=== PATIENT | male | born 1970 | race African-American/Black ===

== ENCOUNTER 2018-02-24 18:03 | Emergency (ER) | payer MEDICAID ==
[~2018-02-24] VITALS: Ht 177.8 cm; Wt 143.0 kg
[~2018-02-24 18:03] MED LIST: BUPR-84 PO; DIPH1TAB PO; FERR-63 PO; FOLI0.8T PO; HYDR25TA PO; MESA800T PO; OMEP40CA PO; POTA10TA15 PO; QUET100T; SULF500
[2018-02-24] MEDS ORDERED: BACITRACIN ZINC OINT UDPKT TOP ONE (19:30)
[2018-02-24 19:56] LABS: BASOPHILS % 0.9 % (0.0-2.0); EOSINOPHILS % 1.1 % (0.0-5.0); HEMATOCRIT. 37.6 % (42.0-52.0); HEMOGLOBIN. 12.8 g/dL (14.0-18.0); LYMPHOCYTES % 17.9 % (20.0-50.0); MEAN CORPUSCULAR HEMOGLOBIN 33.7 pg (28.0-32.0); MEAN CORPUSCULAR VOLUME 99.2 fL (80.0-94.0); MEAN PLATELET VOLUME 8.2 fl (7.4-10.4); MONOCYTES % 8.2 % (2.0-8.0); NEUTROPHILS % 71.9 % (40.0-76.0); PLATELET 290 x1000/uL (130-400); RED BLOOD CELL COUNT 3.79 mill/uL (4.7-6.1); RED CELL DISTRIBUTION WIDTH 14.6 % (11.6-14.6)
[2018-02-24 20:01] LABS: CHLORIDE 107 mEq/L (98-107)
[2018-02-24 20:04] LABS: ETHANOL BLOOD < 10 mg/dL
[2018-02-24] MEDS ORDERED: LIDOCAINE HCL/PF 1% 10 MG/ML 5ML VIAL IJ ONE (20:45)
[2018-02-24 20:49] LABS: CLARITY URINE CLEAR (CLEAR); COLOR URINE YELLOW (YELLOW); KETONES URINE 1+ (NEGATIVE); LEUKOCYTE ESTERASE URINE NEGATIVE (NEGATIVE); NITRITE URINE NEGATIVE (NEGATIVE); OCCULT BLOOD URINE NEGATIVE (NEGATIVE); PROTEIN URINE TRACE (NEGATIVE); SPECIFIC GRAVITY URINE 1.015 (1.005-1.030); UROBILINOGEN URINE 0.2 E.U./dL (0.2-1.0)
[2018-02-24 20:57] LABS: *AMPHETAMINES SCREEN URINE PRESUMTIVE POSITIVE (NEGATIVE); *BARBITURATES SCREEN URINE NEGATIVE (NEGATIVE); *BENZODIAZEPINES SCREEN URINE NEGATIVE (NEGATIVE); *COCAINE SCREEN URINE PRESUMTIVE POSITIVE (NEGATIVE)
[2018-02-24 20:58] LABS: CANNABINOID URINE SCREEN PRESUMTIVE POSITIVE (NEGATIVE); METHADONE URINE SCREEN NEGATIVE (NEGATIVE); OPIATES URINE SCREEN NEGATIVE (NEGATIVE); PHENCYCLIDINE URINE SCREEN NEGATIVE (NEGATIVE)
[2018-02-24] MEDS ORDERED: DIPHENHYDRAMINE 50MG/ML VIAL IM STA (22:29)
[2018-02-24] MEDS ORDERED: LORAZEPAM 2MG/ML CPJ IM ONE (22:30)
[2018-02-25] MEDS ORDERED: LOPERAMIDE HCL 2MG CAPSULE PO ONE (02:30)
[2018-02-25] MEDS ORDERED: SULFASALAZINE 500MG TABLET PO SCH (09:00)
[2018-02-25] MEDS ORDERED: GABA300C MT (13:41)
[2018-02-25] MEDS ORDERED: PANT40SU PO (13:42)
[2018-02-25] MEDS ORDERED: ASPI-1159 PO (13:44)
[2018-02-25] MEDS ORDERED: MAGNESIUM/ALUMINUM HYDROXIDE/SIMETHICONE 30ML UDC PO STA (17:12)
[2018-02-25] MEDS ORDERED: VISCOUS LIDOCAINE 2% 15 ML UDC PO STA (17:12)
[2018-02-25] MEDS ORDERED: LORAZEPAM 1MG TABLET PO ONE ×2 (17:15→20:00)
[2018-02-25] MEDS ORDERED: DIPHENHYDRAMINE 25MG CAPSULE PO ONE (17:15)
[2018-02-25] MEDS ORDERED: QUETIAPINE FUMARATE 100MG TABLET PO ONE (20:00)
[2018-02-25] MEDS ORDERED: DIPHENOXYLATE/ATROPINE 2.5/0.025MG TABLET PO ONE (20:15)
[2018-02-25] MEDS ORDERED: ZIPRASIDONE MESYLATE 20MG/VIAL IM ONE (20:45)
[2018-02-25] MEDS ORDERED: DIPHENHYDRAMINE 50MG/ML VIAL IM ONE (20:45)
[2018-02-25] MEDS: SULFASALAZINE 500MG TABLET PO SCH (21:13)
[2018-02-26] MEDS: SULFASALAZINE 500MG TABLET PO SCH ×3 (09:30→17:26)
[2018-02-26] MEDS ORDERED: MESALAMINE 250MG CAPSULE EXTENDED RELEASE PO STA (10:48)
[2018-02-26] MEDS ORDERED: LORAZEPAM 2MG/ML CPJ IM PRN (11:00)
[2018-02-26] MEDS ORDERED: POTASSIUM CHLORIDE 10MEQ TABLET SR PO ONE (11:00)
[2018-02-26] MEDS ORDERED: LISINOPRIL 2.5MG TABLET PO ONE (11:00)
[2018-02-26] MEDS ORDERED: BUPROPION HCL 150MG SR TABLET PO ONE (11:00)
[2018-02-26] MEDS ORDERED: PANTOPRAZOLE 40MG DR TABLET PO ONE (11:00)
[2018-02-26] MEDS ORDERED: GABAPENTIN 300MG CAPSULE PO ONE (11:00)
[2018-02-26] MEDS: FOLIC ACID 0.4MG TABLET PO SCH ×2 (12:30→17:26)
[2018-02-26] MEDS ORDERED: MESALAMINE 400 MG CAPSULE.DR PO SCH (12:45)
[2018-02-27] MEDS: SULFASALAZINE 500MG TABLET PO SCH ×2 (09:00→13:00)
[2018-02-27] MEDS: FOLIC ACID 0.4MG TABLET PO SCH (11:43)
[2018-02-27] MEDS ORDERED: LORAZEPAM 2MG/ML CPJ IM ONE (20:30)
[2018-02-28 11:02] VITALS: BP 125/61
== END 2018-02-28 17:44 | disposition home or self-care (01) ==
LOC: ER 18:59
DX: R45.851 Suicidal ideations (principal); S71.112A Laceration without foreign body, left thigh, initial encounter; R44.1 Visual hallucinations; R44.0 Auditory hallucinations; T76.21XA Adult sexual abuse, suspected, initial encounter; X99.1XXA Assault by knife, initial encounter; Y93.89 Activity, other specified; Y92.89 Other specified places as the place of occurrence of the external cause; R19.7 Diarrhea, unspecified; I10 Essential (primary) hypertension; K50.90 Crohn's disease, unspecified, without complications; R45.1 Restlessness and agitation; F14.10 Cocaine abuse, uncomplicated; F15.10 Other stimulant abuse, uncomplicated; F16.10 Hallucinogen abuse, uncomplicated; F12.10 Cannabis abuse, uncomplicated; D64.9 Anemia, unspecified; F79 Unspecified intellectual disabilities; Z75.1 Person awaiting admission to adequate facility elsewhere; Z87.890 Personal history of sex reassignment; Z86.59 Personal history of other mental and behavioral disorders; Z88.8 Allergy status to other drugs, medicaments and biological substances
CPT/HCPCS: 12001; 36415; 80048; 80305; 80307; 80329; 81003; 85025; 96372; 99285; G0482; J1200; J2060; J3486; J3490; Z7610; Q0163

== ENCOUNTER 2018-04-12 05:33 | Emergency (ER) | payer MEDICAID, MEDICARE ==
[~2018-04-12] VITALS: Ht 182.9 cm; Wt 127.0 kg
[~2018-04-12 05:33] MED LIST changes: +ASPI-1159 PO; +GABA300C MT; +PANT40SU PO
[2018-04-12 07:30] LABS: BASOPHILS % 0.5 % (0.0-2.0); EOSINOPHILS % 0.3 % (0.0-5.0); HEMATOCRIT. 37.5 % (42.0-52.0); LYMPHOCYTES % 13.2 % (20.0-50.0); MEAN CORPUSCULAR VOLUME 98.4 fL (80.0-94.0); MEAN PLATELET VOLUME 8.9 fl (7.4-10.4); MONOCYTES % 7.5 % (2.0-8.0); NEUTROPHILS % 78.5 % (40.0-76.0); PLATELET 212 x1000/uL (130-400); RED BLOOD CELL COUNT 3.81 mill/uL (4.7-6.1); RED CELL DISTRIBUTION WIDTH 13.9 % (11.6-14.6)
[2018-04-12 07:32] LABS: CHLORIDE 108 mEq/L (98-107)
[2018-04-12 07:35] LABS: HCG SCREEN NEGATIVE
[2018-04-12 07:39] LABS: ETHANOL BLOOD < 10 mg/dL
[2018-04-12 08:12] LABS: CLARITY URINE CLOUDY (CLEAR); KETONES URINE TRACE (NEGATIVE); LEUKOCYTE ESTERASE URINE NEGATIVE (NEGATIVE); NITRITE URINE NEGATIVE (NEGATIVE); OCCULT BLOOD URINE NEGATIVE (NEGATIVE); PH URINE 5.5 (4.5-8.0); PROTEIN URINE 1+ (NEGATIVE); SPECIFIC GRAVITY URINE 1.013 (1.005-1.030); UROBILINOGEN URINE 0.2 E.U./dL (0.2-1.0)
[2018-04-12 08:13] LABS: COLOR URINE YELLOW (YELLOW)
[2018-04-12 08:33] LABS: *AMPHETAMINES SCREEN URINE PRESUMTIVE POSITIVE (NEGATIVE); *BARBITURATES SCREEN URINE NEGATIVE (NEGATIVE); *BENZODIAZEPINES SCREEN URINE NEGATIVE (NEGATIVE); *COCAINE SCREEN URINE PRESUMTIVE POSITIVE (NEGATIVE); CANNABINOID URINE SCREEN PRESUMTIVE POSITIVE (NEGATIVE); METHADONE URINE SCREEN NEGATIVE (NEGATIVE); OPIATES URINE SCREEN NEGATIVE (NEGATIVE); PHENCYCLIDINE URINE SCREEN NEGATIVE (NEGATIVE)
[2018-04-12] MEDS ORDERED: POTASSIUM CHLORIDE 20MEQ TABLET SR PO ONE (08:45)
[2018-04-12] MEDS ORDERED: QUETIAPINE FUMARATE 100MG TABLET PO STA (11:06)
[2018-04-12] MEDS ORDERED: QUETIAPINE FUMARATE 100MG TABLET PO SCH (17:15)
[2018-04-12] MEDS ORDERED: POTASSIUM CHLORIDE 10MEQ TABLET SR PO ONE ×2 (20:30)
[2018-04-13] MEDS ORDERED: HALOPERIDOL LACTATE 5MG/ML VIAL IM ONE (00:45)
[2018-04-13] MEDS ORDERED: LORAZEPAM 2MG/ML CPJ IM ONE (00:45)
[2018-04-13] MEDS ORDERED: ZIPRASIDONE MESYLATE 20MG/VIAL IM ONE (02:00)
[2018-04-13 09:45] VITALS: BP 115/70
== END 2018-04-13 12:27 | disposition home or self-care (01) ==
LOC: ER 05:33
DX: R45.851 Suicidal ideations (principal); R44.0 Auditory hallucinations; Z78.1 Physical restraint status; F14.10 Cocaine abuse, uncomplicated; F15.10 Other stimulant abuse, uncomplicated; F12.10 Cannabis abuse, uncomplicated; E87.6 Hypokalemia; D64.9 Anemia, unspecified; F31.9 Bipolar disorder, unspecified; F91.8 Other conduct disorders; F64.0 Transsexualism; F20.9 Schizophrenia, unspecified; F17.200 Nicotine dependence, unspecified, uncomplicated; I10 Essential (primary) hypertension; Z79.899 Other long term (current) drug therapy; Z88.8 Allergy status to other drugs, medicaments and biological substances; Z88.5 Allergy status to narcotic agent; Z79.82 Long term (current) use of aspirin
CPT/HCPCS: 36415; 80053; 80305; 81003; 84703; 85025; 96372; 99284; G0482; J1630; J2060; J3486

== ENCOUNTER 2018-09-26 20:00 | Inpatient (IN) | payer MEDICAID, MEDICARE ==
[~2018-09-26] VITALS: Ht 177.8 cm; Wt 137.2 kg
[2018-09-27 06:57] LABS: CLARITY URINE CLEAR (CLEAR); COLOR URINE YELLOW (YELLOW); KETONES URINE NEGATIVE (NEGATIVE); LEUKOCYTE ESTERASE URINE NEGATIVE (NEGATIVE); NITRITE URINE NEGATIVE (NEGATIVE); OCCULT BLOOD URINE NEGATIVE (NEGATIVE); PROTEIN URINE NEGATIVE (NEGATIVE); SPECIFIC GRAVITY URINE 1.013 (1.005-1.030); UROBILINOGEN URINE 0.2 E.U./dL (0.2-1.0)
[2018-09-27 07:08] LABS: BASOPHILS % 0.9 % (0.0-2.0); EOSINOPHILS % 4.1 % (0.0-5.0); HEMATOCRIT. 35.9 % (42.0-52.0); LYMPHOCYTES % 28.2 % (20.0-50.0); MEAN CORPUSCULAR HEMOGLOBIN 33.7 pg (28.0-32.0); MEAN PLATELET VOLUME 9.1 fl (7.4-10.4); MONOCYTES % 10.4 % (2.0-8.0); NEUTROPHILS % 56.4 % (40.0-76.0); PLATELET 264 x1000/uL (130-400); RED BLOOD CELL COUNT 3.56 mill/uL (4.7-6.1); RED CELL DISTRIBUTION WIDTH 13.3 % (11.6-14.6)
[2018-09-27 07:09] LABS: CHLORIDE 107 mEq/L (98-107)
[2018-09-27 07:13] LABS: ETHANOL BLOOD < 10 mg/dL
[2018-09-27 07:17] LABS: *AMPHETAMINES SCREEN URINE NEGATIVE (NEGATIVE); *BENZODIAZEPINES SCREEN URINE NEGATIVE (NEGATIVE)
[2018-09-27 07:18] LABS: *COCAINE SCREEN URINE PRESUMTIVE POSITIVE (NEGATIVE); CANNABINOID URINE SCREEN PRESUMTIVE POSITIVE (NEGATIVE); METHADONE URINE SCREEN NEGATIVE (NEGATIVE); OPIATES URINE SCREEN NEGATIVE (NEGATIVE); PHENCYCLIDINE URINE SCREEN NEGATIVE (NEGATIVE)
[2018-09-27 07:20] LABS: *BARBITURATES SCREEN URINE NEGATIVE (NEGATIVE)
[2018-09-27] MEDS ORDERED: ACETAMINOPHEN 325MG TABLET PO PRN ×2 (10:30→11:15)
[2018-09-27] MEDS ORDERED: ACETAMINOPHEN 650MG SUPP PR PRN (10:30)
[2018-09-27] MEDS ORDERED: HYDROCODONE/ACETAMINOPHEN 5/325MG TABLET PO PRN ×2 (10:30→15:00)
[2018-09-27] MEDS ORDERED: IPRATROPIUM/ALBUTEROL 0.5-3(2.5)MG/3ML NEB INH PRN ×2 (10:30→11:15)
[2018-09-27] MEDS ORDERED: DOCUSATE SODIUM 100MG CAPSULE PO PRN (10:30)
[2018-09-27] MEDS ORDERED: CLONIDINE 0.1MG TABLET PO PRN (10:30)
[2018-09-27] MEDS ORDERED: DIPHENHYDRAMINE 50MG/ML VIAL IV PRN (10:30)
[2018-09-27] MEDS ORDERED: GUAIFENESIN 200MG/10ML SUGAR FREE UDC PO PRN (10:30)
[2018-09-27] MEDS ORDERED: ONDANSETRON HCL 4MG/2ML INJ IV PRN ×2 (10:30→11:15)
[2018-09-27] MEDS ORDERED: LORAZEPAM 0.5MG TABLET PO PRN (10:30)
[2018-09-27] MEDS: MVI, ADULT NO.1 10 ML, FOLIC ACID 1 MG, THIAMINE HCL 100 MG in SODIUM CHLORIDE 0.9% 1,0... IV SCH ×8 (11:15→16:29)
[2018-09-27] MEDS ORDERED: ENOXAPARIN 40MG/0.4ML SYR SUBCUT SCH (14:00)
[2018-09-27] MEDS ORDERED: HYDROMORPHONE HCL/PF 2MG/ML CPJ IV NR (16:30)
[2018-09-27 17:00] VITALS: BP 128/65
[2018-09-27 17:15] VITALS: BP 128/65
[2018-09-27] MEDS: DIPHENHYDRAMINE 50MG/ML VIAL IV PRN (18:59)
[2018-09-27 20:00] VITALS: BP 107/69
[2018-09-27] MEDS: HYDROMORPHONE HCL/PF 2MG/ML CPJ IV PRN (20:36)
[2018-09-27] MEDS: NICOTINE 21MG PATCH TD SCH (20:58)
[2018-09-27] MEDS: ENOXAPARIN 40MG/0.4ML SYR SUBCUT SCH (20:59)
[2018-09-27] MEDS: LORAZEPAM 2MG/ML CPJ IV PRN (21:27)
[2018-09-27] MEDS ORDERED: MVI, ADULT NO.1 10 ML, FOLIC ACID 1 MG, THIAMINE HCL 100 MG in SODIUM CHLORIDE 0.9% 1,0... IV SCH ×4 (22:30)
[2018-09-28] VITALS: BP 100/50
[2018-09-28] MEDS: HYDROMORPHONE HCL/PF 2MG/ML CPJ IV PRN ×4 (02:11→20:29)
[2018-09-28] MEDS: LORAZEPAM 2MG/ML CPJ IV PRN ×3 (03:33→17:28)
[2018-09-28 04:00] VITALS: BP 105/69
[2018-09-28] MEDS: PANTOPRAZOLE SODIUM 40 MG/VIAL IV SCH (07:58)
[2018-09-28 08:00] VITALS: BP_SYST 11; BP_SYST 111; BP_DIAS 46
[2018-09-28] MEDS: NICOTINE 21MG PATCH TD SCH (08:01)
[2018-09-28] MEDS: ENOXAPARIN 40MG/0.4ML SYR SUBCUT SCH ×2 (08:02→20:18)
[2018-09-28] MEDS: DIPHENHYDRAMINE 50MG/ML VIAL IV PRN ×3 (08:10→20:18)
[2018-09-28 12:36] VITALS: BP 146/87
[2018-09-28] MEDS ORDERED: DIATR MEGLU/DIATRIZOATE SOLN 30ML PO SCH (13:30)
[2018-09-28 16:00] VITALS: BP 142/85
[2018-09-28 16:42] LABS: CHLORIDE 108 mEq/L (98-107)
[2018-09-28 16:44] LABS: LDL CHOLESTEROL 88 mg/dL (5-100)
[2018-09-28 16:55] LABS: HDL CHOLESTEROL 34 mg/dL (40-59)
[2018-09-28 17:28] LABS: HEMATOCRIT 35.5 % (42.0-52.0); HEMOGLOBIN 12.1 g/dL (14.0-18.0); MEAN CORPUSCULAR HEMOGLOBIN 34.5 pg (28.0-32.0); MEAN CORPUSCULAR VOLUME 101.4 fL (80.0-94.0); PLATELET 229 x1000/uL (130-400); RED CELL DISTRIBUTION WIDTH 13.2 % (11.6-14.6)
[2018-09-28 20:00] VITALS: BP 179/119
[2018-09-28] MEDS: CLONIDINE 0.1MG TABLET PO PRN (20:38)
[2018-09-29] VITALS: BP 104/69
[2018-09-29] MEDS: LORAZEPAM 2MG/ML CPJ IV PRN ×4 (00:31→19:58)
[2018-09-29] MEDS: DIPHENHYDRAMINE 50MG/ML VIAL IV PRN ×4 (02:34→20:42)
[2018-09-29] MEDS: HYDROMORPHONE HCL/PF 2MG/ML CPJ IV PRN ×4 (02:36→20:37)
[2018-09-29 04:00] VITALS: BP 156/80
[2018-09-29] MEDS ORDERED: SODIUM CHL 0.45% + KCL 20MEQ/L 1,000 ML IV SCH (08:00)
[2018-09-29] MEDS: PANTOPRAZOLE SODIUM 40 MG/VIAL IV SCH (08:35)
[2018-09-29] MEDS: NICOTINE 21MG PATCH TD SCH (08:37)
[2018-09-29] MEDS: ENOXAPARIN 40MG/0.4ML SYR SUBCUT SCH ×2 (08:37→20:37)
[2018-09-29] MEDS ORDERED: FAMOTIDINE 20MG/2ML VIAL IV SCH (09:00)
[2018-09-29] MEDS ORDERED: SODIUM POLYSTYRENE SULFONATE 15 G/60 ML BOT PO NR (10:30)
[2018-09-29] MEDS ORDERED: HYDROMORPHONE HCL/PF 2MG/ML CPJ IV SCH (11:15)
[2018-09-29 12:26] LABS: CHLORIDE 108 mEq/L (98-107)
[2018-09-29] MEDS: CLONIDINE 0.1MG TABLET PO PRN (16:04)
[2018-09-29 16:50] VITALS: BP 160/119
[2018-09-29 20:00] VITALS: BP 147/95
[2018-09-30] VITALS: BP 114/57
[2018-09-30] MEDS: LORAZEPAM 2MG/ML CPJ IV PRN ×4 (01:39→19:52)
[2018-09-30] MEDS: HYDROMORPHONE HCL/PF 2MG/ML CPJ IV PRN ×4 (02:35→20:36)
[2018-09-30] MEDS: DIPHENHYDRAMINE 50MG/ML VIAL IV PRN ×4 (02:35→20:36)
[2018-09-30 08:00] VITALS: BP 112/63
[2018-09-30] MEDS: PANTOPRAZOLE SODIUM 40 MG/VIAL IV SCH (08:46)
[2018-09-30] MEDS: NICOTINE 21MG PATCH TD SCH (08:46)
[2018-09-30] MEDS: ENOXAPARIN 40MG/0.4ML SYR SUBCUT SCH ×2 (08:48→20:48)
[2018-09-30 12:00] VITALS: BP 141/88
[2018-09-30 16:00] VITALS: BP 143/97
[2018-10-01] MEDS: DIPHENHYDRAMINE 50MG/ML VIAL IV PRN ×3 (02:37→15:21)
[2018-10-01] MEDS: HYDROMORPHONE HCL/PF 2MG/ML CPJ IV PRN ×3 (02:38→15:21)
[2018-10-01] MEDS: LORAZEPAM 2MG/ML CPJ IV PRN ×3 (03:45→17:00)
[2018-10-01] MEDS ORDERED: MAGNESIUM/ALUMINUM HYDROXIDE/SIMETHICONE 30ML UDC PO NR (06:37)
[2018-10-01] MEDS: NICOTINE 21MG PATCH TD SCH (08:09)
[2018-10-01] MEDS: ENOXAPARIN 40MG/0.4ML SYR SUBCUT SCH (08:10)
[2018-10-01] MEDS: CLONIDINE 0.1MG TABLET PO PRN ×2 (08:10→18:50)
[2018-10-01] MEDS ORDERED: PANTOPRAZOLE SODIUM 40 MG/VIAL IV SCH (09:00)
[2018-10-01 15:21] VITALS: BP 143/99
== END 2018-10-01 19:30 | disposition left against medical advice (07) | DRG 245 ==
LOC: ER 20:00 → 5WST 09-27 08:01 → EDBEDREQ 09-27 08:08 → ENRESERV 09-27 15:59 → 6EST 10-01 05:40
PROVIDERS: ADMIT Internal Medicine; ATTEND Internal Medicine
DX: K50.90 Crohn's disease, unspecified, without complications (principal); N17.9 Acute kidney failure, unspecified; E72.20 Disorder of urea cycle metabolism, unspecified; R45.851 Suicidal ideations; E87.5 Hyperkalemia; F20.9 Schizophrenia, unspecified; E86.0 Dehydration; G89.29 Other chronic pain; I10 Essential (primary) hypertension; F32.9 Major depressive disorder, single episode, unspecified; D64.9 Anemia, unspecified; Z53.21 Procedure and treatment not carried out due to patient leaving prior to being seen by health care provider; K60.4 Rectal fistula; F19.10 Other psychoactive substance abuse, uncomplicated; F64.9 Gender identity disorder, unspecified; Z87.891 Personal history of nicotine dependence; Z93.3 Colostomy status; Z88.6 Allergy status to analgesic agent; Z88.8 Allergy status to other drugs, medicaments and biological substances; Z91.19 Patient's noncompliance with other medical treatment and regimen; Z79.82 Long term (current) use of aspirin; Z79.899 Other long term (current) drug therapy
CPT/HCPCS: 36415; 71045; 74176; 80048; 80061; 80305; 80320; 82140; 84484; 85027; 96365; 96372; 96375; 99285; A6261; C1893; C9113; J1170; J1200; J1650; J2060; J2405; J3411; J3490; J7030; G0480

== ENCOUNTER 2022-09-22 16:48 | Emergency (ER) | payer MEDICARE ==
[~2022-09-22] VITALS: Ht 167.6 cm; Wt 82.0 kg
[~2022-09-22 16:48] MED LIST changes: -ASPI-1159 PO; +ASPI-1497 PO; +BUPR-74 PO; -BUPR-84 PO; -FOLI0.8T PO; +FOLI0.8T9 PO; -SULF500; +[UNRECOGNIZED DRUG - CODE]
[2022-09-23 03:03] LABS: BASOPHILS % 0.6 % (0.0-2.0); EOSINOPHILS % 3.6 % (0.0-5.0); HEMATOCRIT. 35.1 % (42.0-52.0); HEMOGLOBIN. 11.9 g/dL (14.0-18.0); LYMPHOCYTES % 35.5 % (20.0-50.0); MEAN CORPUSCULAR HEMOGLOBIN 34.3 pg (28.0-32.0); MEAN CORPUSCULAR VOLUME 101.3 fL (80.0-94.0); MEAN PLATELET VOLUME 7.7 fl (7.4-10.4); NEUTROPHILS % 53.3 % (40.0-76.0); PLATELET 369 x1000/uL (130-400); RED BLOOD CELL COUNT 3.47 mill/uL (4.7-6.1)
[2022-09-23 03:11] LABS: CHLORIDE 115 mEq/L (98-107)
[2022-09-23] MEDS ORDERED: HYDROCODONE/ACETAMINOPHEN 5/325MG TABLET PO ONE (03:30)
[2022-09-23 03:32] LABS: D-DIMER 0.66 mg/L FEU (<0.50); PROTHROMBIN TIME 10.7 sec (9.6-11.0)
[2022-09-23 03:51] LABS: CLARITY URINE TURBID (CLEAR); COLOR URINE YELLOW (YELLOW); KETONES URINE NEGATIVE (NEGATIVE); LEUKOCYTE ESTERASE URINE 1+ (NEGATIVE); NITRITE URINE NEGATIVE (NEGATIVE); OCCULT BLOOD URINE TRACE (NEGATIVE); PH URINE 5.5 (4.5-8.0); PROTEIN URINE NEGATIVE (NEGATIVE); SPECIFIC GRAVITY URINE 1.015 (1.005-1.030); UROBILINOGEN URINE 0.2 E.U./dL (0.2-1.0)
[2022-09-23 05:00] VITALS: BP 122/54
[2022-09-23] MEDS ORDERED: NITR-87 MT (05:45)
== END 2022-09-23 05:45 | disposition home or self-care (01) ==
LOC: ER 16:53
DX: R10.9 Unspecified abdominal pain (principal); R11.10 Vomiting, unspecified; R07.89 Other chest pain; D64.9 Anemia, unspecified; F31.9 Bipolar disorder, unspecified; I10 Essential (primary) hypertension; F20.9 Schizophrenia, unspecified; F12.10 Cannabis abuse, uncomplicated; Z79.899 Other long term (current) drug therapy
CPT/HCPCS: 36415; 74176; 80053; 81003; 84484; 85025; 85379; 99284